=== PATIENT | female | born 2000 | race Caucasian/White ===

== ENCOUNTER 2019-05-06 21:11 | Emergency (ER) | payer OTHER ==
--- NOTE | 2019-05-06 21:38 | ER Document Report ---
ED Medical Screen (RME) - General Chief Complaint: High Blood Sugar Stated Complaint: HIGH BLOOD SUGAR/STOMACH PAIN Time Seen by Provider: 05/06/19 21:32 Mode of Arrival: Ambulatory Information source: Patient Notes: 19-year-old female presented to ED for complaint of lower abdominal pain and mucousy diarrhea. She states after dinner she checked her sugar and it was high and she went to give herself an injection and her injection pump on the side of her thigh was supposed to be changed today and she does not think she got the proper dose. Patient states she has had the mucousy stools and abdominal pain for 2 to 3 months. She states she has been to [facility] several times for the same complaint and they never do anything except for that she now has a appointment with GI for Friday. Last menstrual cycle was April 30. She states she was on Depakote and this is her first cycle in a while. She states she has a constant cramping sharp pain in her stomach. Rates her pain is4/5. She states the worst pain is in the middle third of her abdomen but it goes all over. I have greeted and performed a rapid initial assessment of this patient. A comprehensive ED assessment and evaluation of the patient, analysis of test results and completion of medical decision making process will be conducted by an additional ED providers. - Related Data Allergies/Adverse Reactions: No Known Allergies Allergy (Unverified 05/06/19 21:32) Physical Exam - Vital signs Vitals: Temp Pulse Resp BP Pulse Ox 98.2 F 101 H 16 119/65 100 05/06/19 21:20 05/06/19 21:20 05/06/19 21:20 05/06/19 21:20 05/06/19 21:20 Course - Vital Signs Vital signs: Temp Pulse Resp BP Pulse Ox 98.2 F 101 H 16 119/65 100 05/06/19 21:20 05/06/19 21:20 05/06/19 21:20 05/06/19 21:20 05/06/19 21:20
[2019-05-06 22:28] LABS: ABSOLUTE EOSINOPHILS # (AUTO) 0.1 10^3/uL (0.0-0.6); ABSOLUTE LYMPHOCYTES (AUTO) 2.1 10^3/uL (0.5-4.7); ABSOLUTE MONOCYTES (AUTO) 0.5 10^3/uL (0.1-1.4); ABSOLUTE NEUT (AUTO) 3.9 10^3/uL (1.7-8.2); BASOPHILS % (AUTO) 0.5 % (0-2); EOSINOPHILS % (AUTO) 1.6 % (0-6); HEMATOCRIT 43.9 % (36.0-47.0); HEMOGLOBIN 14.9 g/dL (12.0-15.5); LYMPHOCYTES % (AUTO) 31.9 % (13-45); MEAN CORPUSCULAR HEMOGLOBIN 30.6 pg (27.0-33.4); MEAN CORPUSCULAR HGB CONC 33.8 g/dL (32.0-36.0); MEAN CORPUSCULAR VOLUME 90 fl (80-97); MONOCYTES % (AUTO) 7.1 % (3-13); PLATELET COUNT 269 10^3/uL (150-450); RED BLOOD COUNT 4.86 10^6/uL (3.72-5.28); RED CELL DISTRIBUTION WIDTH 12.6 % (11.5-14.0); SEGMENTED NEUTROPHILS % (AUTO) 58.9 % (42-78); TOTAL CELLS COUNTED % (AUTO) 100 %; WHITE BLOOD COUNT 6.6 10^3/uL (4.0-10.5)
[2019-05-06 22:46] LABS: ALBUMIN 4.6 g/dL (3.5-5.0); ALKALINE PHOSPHATASE 118 U/L (38-126); ANION GAP 10 (5-19); ASPARTATE AMINO TRANSFERASE 20 U/L (14-36); BILIRUBIN,DIRECT 0.2 mg/dL (0.0-0.4); BILIRUBIN,TOTAL 0.3 mg/dL (0.2-1.3); BLOOD UREA NITROGEN 11 mg/dL (7-20); CALCIUM 9.8 mg/dL (8.4-10.2); CARBON DIOXIDE 29 mmol/L (22-30); CHLORIDE 99 mmol/L (98-107); POTASSIUM 4.8 mmol/L (3.6-5.0); TOTAL PROTEIN 7.6 g/dL (6.3-8.2)
[2019-05-06 23:04] LABS: GLUCOSE 476 mg/dL (75-110)
[2019-05-06] MEDS ORDERED: NORMAL SALINE 1000 ML 1,000 ML IV ONE (23:27)
[2019-05-06] MEDS ORDERED: RINGERS SOLUTION,LACTATED 1,000 ML IV ONE ×2 (23:29→23:42)
[2019-05-06] MEDS ORDERED: FAMOTIDINE INJ/PF 20 MG/2 ML SDV IV ONE (23:41)
[2019-05-06] MEDS ORDERED: ONDANSETRON HCL INJ/PF 4 MG/2 ML SDV IV ONE (23:41)
[2019-05-06] MEDS ORDERED: DICYCLOMINE HCL 20 MG TABLET PO ONE (23:41)
[2019-05-06] MEDS ORDERED: INSULIN REG, HUMAN 100 UNIT/ML 3 ML VIAL (PYX) SUBCUT ONE (23:45)
--- NOTE | 2019-05-06 23:45 | ER Document Report ---
ED General - General Chief Complaint: Abdominal Pain Stated Complaint: HIGH BLOOD SUGAR/STOMACH PAIN Time Seen by Provider: 05/06/19 21:32 Primary Care Provider: PATRICA LOMBARDI MD [ACTIVE STAFF] - Follow up as needed Mode of Arrival: Ambulatory Notes: Patient is a 19-year-old female type I diabetic presents to the emergency department for abdominal pain and diarrhea. Patient voices she has had intermittent abdominal pain for "months now." States she is been seen at [facility] multiple times. States she has undergone multiple CT scans. Patient voices tonight she continued with her generalized diarrhea but the abdominal pain became severe which is why she presents to the emergency room. Patient voices she also was unable to cant hooker her insulin pump so she feels as though her sugars are high. Patient is complaining of generalized nausea but is denying any vomiting. She is denying any vaginal discharge or dysuria. Patient is denying any blood in her stool. States last menstrual cycle was 04/30/2019 Type I diabetic, NovoLog, no allergies. TRAVEL OUTSIDE OF THE [place] IN LAST 30 DAYS: No - Related Data Allergies/Adverse Reactions: No Known Allergies Allergy (Unverified 05/06/19 21:32) Past Medical History - General Information source: Patient - Social History Smoking Status: Never Smoker Chew tobacco use (# tins/day): No Frequency of alcohol use: Occasional Drug Abuse: None Family History: Reviewed & Not Pertinent Patient has suicidal ideation: No Patient has homicidal ideation: No Review of Systems - Review of Systems Constitutional: denies: Fever EENT: No symptoms reported Cardiovascular: No symptoms reported Respiratory: No symptoms reported Gastrointestinal: See HPI Genitourinary: See HPI Female Genitourinary: See HPI Musculoskeletal: No symptoms reported Skin: No symptoms reported Hematologic/Lymphatic: No symptoms reported Neurological/Psychological: No symptoms reported Physical Exam - Vital signs Vitals: Temp Pulse Resp BP Pulse Ox 98.2 F 101 H 16 119/65 100 05/06/19 21:20 05/06/19 21:20 05/06/19 21:20 05/06/19 21:20 05/06/19 21:20 - Notes Notes: GENERAL: Alert, interacts well. No acute distress. HEAD: Normocephalic, atraumatic. EYES: Pupils equal, round, and reactive to light. Extraocular movements intact. ENT: Oral mucosa moist, tongue midline. NECK: Full range of motion. Supple. Trachea midline. LUNGS: Clear to auscultation bilaterally, no wheezes, rales, or rhonchi. No respiratory distress. HEART: Regular rate and rhythm. No murmur ABDOMEN: Soft, generalized epigastric and right upper quadrant pain noted. Otherwise abdominal exam benign, non-distended. Bowel sounds present in all 4 quadrants. EXTREMITIES: Moves all 4 extremities spontaneously. No edema, normal radial and dorsalis pedis pulses bilaterally. No cyanosis. BACK: no cervical, thoracic, lumbar midline tenderness. No saddle anesthesia, normal distal neurovascular exam. No CVA tenderness noted bilaterally. NEUROLOGICAL: Alert and oriented x3. Normal speech. cranial nerves II through XII grossly intact PSYCH: Normal affect, normal mood. SKIN: Warm, dry, normal turgor. No rashes or lesions noted. Course - Re-evaluation Re-evalutation: Laboratory 05/06/19 05/06/19 05/06/19 21:56 21:56 21:56 WBC 6.6 RBC 4.86 Hgb 14.9 Hct 43.9 MCV 90 MCH 30.6 MCHC 33.8 RDW 12.6 Plt Count 269 Lymph % (Auto) 31.9 Hudspeth % (Auto) 7.1 Eos % (Auto) 1.6 Baso % (Auto) 0.5 Absolute Neuts (auto) 3.9 Absolute Lymphs (auto) 2.1 Absolute Monos (auto) 0.5 Absolute Eos (auto) 0.1 Absolute Basos (auto) 0.0 Seg Neutrophils % 58.9 VBG pH VBG pCO2 VBG HCO3 VBG Base Excess Sodium 138.2 Potassium 4.8 Chloride 99 Carbon Dioxide 29 Anion Gap 10 BUN 11 Creatinine 0.73 Est GFR ( Amer) > 60 Est GFR (MDRD) Non-Af > 60 Glucose 476 H* POC Glucose Calcium 9.8 Total Bilirubin 0.3 Direct Bilirubin 0.2 Neonat Total Bilirubin Not Reportable Neonat Direct Bilirubin Not Reportable Neonat Indirect Bili Not Reportable AST 20 ALT 17 Alkaline Phosphatase 118 Total Protein 7.6 Albumin 4.6 Lipase Serum HCG, Qual Urine Color Urine Appearance Urine pH Ur Specific [place] Urine Protein Urine Glucose (UA) Urine Ketones Urine Blood Urine Nitrite (Reflex) Urine Bilirubin Urine Urobilinogen Leukocyte Esterase Rfl Urine RBC (Auto) Urine WBC (Reflex) Squamous Epi Cells Auto Urine Mucus (Auto) Urine Ascorbic Acid 05/06/19 05/06/19 05/06/19 21:56 21:56 23:06 WBC RBC Hgb Hct MCV MCH MCHC RDW Plt Count Lymph % (Auto) Hudsp[place] % (Auto) Eos % (Auto) Baso % (Auto) Absolute Neuts (auto) Absolute Lymphs (auto) Absolute Monos (auto) Absolute Eos (auto) Absolute Basos (auto) Seg Neutrophils % VBG pH VBG pCO2 VBG HCO3 VBG Base Excess Sodium Potassium Chloride Carbon Dioxide Anion Gap BUN Creatinine Est GFR ( Amer) Est GFR (MDRD) Non-Af Glucose POC Glucose 463 H* Calcium Total Bilirubin Direct Bilirubin Neonat Total Bilirubin Neonat Direct Bilirubin Neonat Indirect Bili AST ALT Alkaline Phosphatase Total Protein Albumin Lipase 115.9 Serum HCG, Qual Urine Color STRAW Urine Appearance CLEAR Urine pH 7.0 Ur Specific [place] 1.026 Urine Protein NEGATIVE Urine Glucose (UA) >=500 H Urine Ketones NEGATIVE Urine Blood NEGATIVE Urine Nitrite (Reflex) NEGATIVE Urine Bilirubin NEGATIVE Urine Urobilinogen NEGATIVE Leukocyte Esterase Rfl NEGATIVE Urine RBC (Auto) 0 Urine WBC (Reflex) 1 Squamous Epi Cells Auto 1 Urine Mucus (Auto) RARE Urine Ascorbic Acid NEGATIVE 05/07/19 00:10 WBC RBC Hgb Hct MCV MCH MCHC RDW Plt Count Lymph % (Auto) [place]ud[place] % (Auto) Eos % (Auto) Baso % (Auto) Absolute Neuts (auto) Absolute Lymphs (auto) Absolute Monos (auto) Absolute Eos (auto) Absolute Basos (auto) Seg Neutrophils % VBG pH 7.38 VBG pCO2 45.7 VBG HCO3 26.5 VBG Base Excess 0.9 Sodium Potassium Chloride Carbon Dioxide Anion Gap BUN Creatinine Est GFR ( Amer) Est GFR (MDRD) Non-Af Glucose POC Glucose Calcium Total Bilirubin Direct Bilirubin Neonat Total Bilirubin Neonat Direct Bilirubin Neonat Indirect Bili AST ALT Alkaline Phosphatase Total Protein Albumin Lipase Serum HCG, Qual Urine Color Urine Appearance Urine pH Ur Specific [place] Urine Protein Urine Glucose (UA) Urine Ketones Urine Blood Urine Nitrite (Reflex) Urine Bilirubin Urine Urobilinogen Leukocyte Esterase Rfl Urine RBC (Auto) Urine WBC (Reflex) Squamous Epi Cells Auto Urine Mucus (Auto) Urine Ascorbic Acid Patient's labs do show hyperglycemia with no signs of acidosis. She was treated with fluids in the emergency department. She was also given insulin. Ultrasound unremarkable. Discussed to continue with appointment for GI. I discussed with patient at bedside keeping a close eye on her sugars for the next couple of days. Patient voices she has already reinserted her insulin pump "will check it more often." - Vital Signs Vital signs: Temp Pulse Resp BP Pulse Ox 98.2 F 101 H 16 119/65 100 05/06/19 21:20 05/06/19 21:20 05/06/19 21:20 05/06/19 21:20 05/06/19 21:20 - Laboratory Result Diagrams: 05/06/19 21:56 05/06/19 21:56 Laboratory results interpreted by me: 05/06/19 05/06/19 05/06/19 21:56 21:56 23:06 Glucose 476 H* POC Glucose 463 H* Urine Glucose (UA) >=500 H Discharge - Discharge Clinical Impression: Hyperglycemia Abdominal pain Qualifiers: Abdominal location: right upper quadrant Qualified Code(s): R10.11 - Right upper quadrant pain Condition: Stable Disposition: HOME, SELF-CARE Instructions: Hyperglycemia ([facility]) Additional Instructions: As we discussed you have been seen and treated in the emergency department for an elevation in your blood sugar. Your labs revealed no signs of acidosis. Please keep a close eye on your sugars to the next couple of days. Please also use medication as prescribed. Please make sure he continue to follow-up with gastroenterology. Please stay well-hydrated and return to the emergency room for any concerns. Follow-up with your primary care provider in 12 hours. Prescriptions: Dicyclomine HCl [Bentyl 20 mg Tablet] 20 mg PO QID #40 tablet Forms: Return to Work Referrals: PATRICA LOMBARDI MD [ACTIVE STAFF] - Follow up as needed
[2019-05-06 23:49] LABS: APPEARANCE,URINE CLEAR; BILIRUBIN,URINE NEGATIVE (NEGATIVE); COLOR,URINE STRAW; GLUCOSE, URINE >=500 mg/dL (NEGATIVE); KETONES,URINE NEGATIVE (NEGATIVE); PROTEIN,URINE NEGATIVE (NEGATIVE); URINE SPECIFIC GRAVITY 1.026; UROBILINOGEN,URINE NEGATIVE mg/dL (<2.0)
[2019-05-07 00:40] LABS: VENOUS BLOOD BASE EXCESS 0.9 mmol/L; VENOUS BLOOD HCO3 26.5 mmol/L (20-32); VENOUS BLOOD PCO2 45.7 mmHg (35-63); VENOUS BLOOD PH 7.38 (7.30-7.42)
--- NOTE | 2019-05-07 02:23 | RADIOLOGY REPORT (SQ) ---
CLINICAL HISTORY: RUQ pain COMPARISON: None. TECHNIQUE: US ABDOMEN LIMITED on 05/06/2019 11:41 PM CDT FINDINGS: Liver is normal in echotexture. Portal vein is patent. Gallbladder is normal in appearance without wall thickening, gallstones or pericholecystic fluid. Common bile duct measures 4 mm. Right kidney measures 12.2 cm without hydronephrosis. IMPRESSION: Unremarkable study.
[2019-05-07 02:52] VITALS: BP 110/62
== END 2019-05-07 02:50 | disposition home or self-care (01) ==
LOC: ER 21:11
DX: E10.649 Type 1 diabetes mellitus with hypoglycemia without coma (principal); R10.11 Right upper quadrant pain; R10.13 Epigastric pain; R19.7 Diarrhea, unspecified; R11.0 Nausea
CPT/HCPCS: 99285; 96361; 96374; 96375; 36415; 82962; 83690; 84703; 85025; 80053; 81001; 82803; 76705; J3490; J1815; J2405; J7120; S0028